=== PATIENT | female | born 1995 | race Caucasian/White ===

== ENCOUNTER 2024-04-17 11:01 | Inpatient (IN) | payer MEDICAID, OTHER ==
[2024-04-17 11:23] VITALS: BMI 31.8
[2024-04-17] MEDS ORDERED: hydrALAZINE 20 MG/ML VIAL SLOW IVP PRN (11:59)
[2024-04-17 13:13] LABS: #Basophils 0.02 10x3/uL (0.0-0.2); #Eosinophils 0.08 10x3/uL (0.0-0.5); #Monocytes 0.68 10x3/uL (0.0-1.1); %Basophils 0.2 % (0.0-2.0); %Eosinophils 0.7 % (0.0-6.0); %Monocytes 5.7 % (0.0-10.0); %Neutrophils 79.6 % (40.0-75.0); Mean Corpuscular HGB CONC 33.3 g/dL (32.0-36.0); Mean Corpuscular Hemoglobin 27.1 pg (27.0-33.0); Mean Corpuscular Volume 81.4 fL (81.6-98.3); Mean Platelet Volume 11.8 fL (7.4-10.4); Platelet Count 267 10x3/uL (150-450); RBC Distribution Width 15.2 % (11.5-14.5); Red Blood Cell (RBC) Count 4.79 10x6/uL (3.90-5.03); White Blood Cell (WBC) Count 11.9 10x3/uL (3.5-10.5)
[2024-04-17 13:44] LABS: HBsAg Index 0.22 S/CO (0-0.99); HIV (1/2) Antibody/Antigen Non-Reactive (NonReactive); Hep B Surf Ag - L&D Non-Reactive S/CO (NonReactive)
[2024-04-17 13:46] LABS: Syphilis Antibody Nonreactive (Nonreactive); Syphilis Antibody Index 0.03 S/CO (<1.00 Non-Reactive)
[2024-04-17 14:24] LABS: Bilirubin Neg (Negative); Blood, Urine Negative (Negative); Clarity Clear (Clear); Glucose, Urine (Dipstick) Normal (Negative); Ketone, Urine Negative (Negative); Leukocyte Negative (Negative); Nitrite Negative (Negative); Protein, Urine (Dipstick) 30 mg/dl (Neg-Trace); Specific Gravity, Urine 1.015 (1.005-1.030); Urobilinogen Normal mg/dL (Less than 2)
[2024-04-17 14:33] LABS: Bacteria/HPF 2+ HPF (None Seen); CAUTI Indications for Culture Pregnancy; RBC/HPF 0-3 HPF (0-3); WBC/HPF 0-3 HPF (0-3)
[2024-04-17 14:34] LABS: Urine Culture Reflex No No; Urine Culture Reflex Yes Yes
[2024-04-17] MEDS: cefTRIAXone\\ROCEPHIN 1 GM in Sodium Chloride 0.9% 100 ML IVPB SCH (15:16)
[2024-04-17] MEDS ORDERED: Promethazine HCl 25 MG/ML VIAL IM PRN (17:26)
[2024-04-17] MEDS ORDERED: Ondansetron PF 4 MG/2 ML Vial IVP PRN (17:26)
[2024-04-17] MEDS ORDERED: Morphine 4 MG/ML VIAL SLOW IVP PRN (17:28)
[2024-04-17] MEDS ORDERED: Acetaminophen 500 MG TAB PO PRN (17:28)
[2024-04-18] MEDS ORDERED: Famotidine/PF 20 mg/2ml Vial SLOW IVP PRN (10:27)
[2024-04-18] MEDS ORDERED: Bicitra 30 ML UDCUP PO PRN (10:27)
[2024-04-18] MEDS ORDERED: CEFAZOLIN 2 GM in Sodium Chloride 0.9% 100 ML IVPB SCH (10:30)
[2024-04-18 11:23] LABS: Analyzer IN Cardio CS NICU; Critical Notified By: S. CREAMER, RRT; RapidComm Collect By CBN
[2024-04-18 11:25] LABS: Analyzer IN Cardio CS NICU; Critical Notified By: S. CREAMER, RRT; RapidComm Collect By CBN; pH (Cord, venous) 7.213 (7.250-7.350)
[2024-04-18] MEDS ORDERED: Naloxone HCl 0.4 mg/ml Vial IV PRN (12:07)
[2024-04-18] MEDS ORDERED: Moisturizing Cream (Eucerin) 113 GM JAR TOP PRN (12:07)
[2024-04-18] MEDS ORDERED: diphenhydrAMINE 50 MG/ML VIAL IVP PRN (12:07)
[2024-04-18] MEDS ORDERED: Promethazine HCl 25 MG/ML VIAL IM PRN (12:07)
[2024-04-18] MEDS ORDERED: Naloxone HCl 0.4 mg/ml Vial IVP PRN ×2 (12:07)
[2024-04-18] MEDS ORDERED: Ondansetron PF 4 MG/2 ML Vial IVP PRN ×2 (12:07)
[2024-04-18] MEDS ORDERED: Meperidine HCl/PF 25 MG (1 mL) VIAL SLOW IVP PRN (12:07)
[2024-04-18] MEDS ORDERED: fentaNYL 50 mcg/mL 1 mL Vial SLOW IVP PRN (12:07)
[2024-04-18] MEDS ORDERED: Communication Order-Pharmacy FS SCH (12:15)
[2024-04-18] MEDS ORDERED: Methylergonovine 0.2 MG/ML VIAL IM PRN (14:29)
[2024-04-18] MEDS ORDERED: diphenhydrAMINE 25 MG CAP PO PRN (14:29)
[2024-04-18] MEDS ORDERED: Oxytocin 30 units/NS 500 ML 500 ML IV SCH (14:29)
[2024-04-18] MEDS ORDERED: Bisacodyl 10 MG SUPP PR PRN (14:29)
[2024-04-18] MEDS ORDERED: hydrALAZINE 20 MG/ML VIAL SLOW IVP PRN (14:29)
[2024-04-18] MEDS ORDERED: Lanolin Ointment 7 GM TUBE TOP PRN (14:29)
[2024-04-18] MEDS ORDERED: Misoprostol 200 MCG TAB PR PRN (14:29)
[2024-04-18] MEDS: Fluconazole 100 MG TAB PO SCH (14:34)
[2024-04-18] MEDS: CEFAZOLIN 2 GM VIAL ONE (14:35)
[2024-04-18] MEDS: Ketorolac Tromethamine 30 MG (1 mL) VIAL IVP SCH (14:35)
[2024-04-18] MEDS: Dexamethasone 10 MG/ML VIAL ONE (14:35)
[2024-04-18] MEDS: ePHEDrine Sulfate 50 MG/10 ML VIAL ONE (14:35)
[2024-04-18] MEDS: Glycopyrrolate 0.2 MG/ML 5 ML SYRINGE ONE (14:35)
[2024-04-18] MEDS: Oxytocin 10 UNITS/ML VIAL ONE (14:36)
[2024-04-18] MEDS: Ondansetron PF 4 MG/2 ML Vial ONE (14:36)
[2024-04-18] MEDS: Ketorolac Tromethamine 30 MG (1 mL) VIAL ONE (14:36)
[2024-04-18] MEDS: Misoprostol 200 MCG TAB ONE ×2 (14:36→14:37)
[2024-04-18] MEDS: Morphine PF 10 MG/10 ML VIAL ONE (14:36)
[2024-04-18] MEDS: PHENYLEPHRINE-NS 100 MCG/ML 10 ML SYRINGE ONE (14:36)
[2024-04-18] MEDS: Boostrix 0.5 ML (Tdap) VIAL (>/=7 yrs of age) IM ONE (14:37)
[2024-04-18] MEDS: cefTRIAXone\\ROCEPHIN 1 GM in Sodium Chloride 0.9% 100 ML IVPB SCH (19:33)
[2024-04-18] MEDS: Docusate 100 MG CAP PO SCH (21:07)
[2024-04-18] MEDS: Ibuprofen 800 MG TAB PO SCH (23:51)
[2024-04-18] MEDS: Ferrous Sulfate 325 MG TAB PO SCH (23:51)
[2024-04-19] MEDS: Ketorolac Tromethamine 30 MG (1 mL) VIAL IVP PRN (01:44)
[2024-04-19 04:54] LABS: Hematocrit 31.1 % (34.9-44.5); Hemoglobin 10.4 g/dL (12.0-15.5); Mean Corpuscular HGB CONC 33.4 g/dL (32.0-36.0); Mean Corpuscular Hemoglobin 27.4 pg (27.0-33.0); Mean Corpuscular Volume 81.8 fL (81.6-98.3); Platelet Count 247 10x3/uL (150-450); RBC Distribution Width 14.9 % (11.5-14.5); White Blood Cell (WBC) Count 13.1 10x3/uL (3.5-10.5)
[2024-04-19] MEDS: HYDROcodone/Acetaminophen 5/325 mg Tablet PO PRN (08:23)
[2024-04-19] MEDS: Prenatal Vitamin 1 TAB PO SCH (08:23)
[2024-04-19 10:38] LABS: Chlamydia by PCR, Vaginal Swab *Indeterminate (NotDetected); GC by PCR, Vaginal Swab *Indeterminate (NotDetected)
[2024-04-19 11:47] LABS: Group B Streptococcus by PCR Not Detected (NotDetected)
[2024-04-19] MEDS: Acetaminophen 325 MG TAB PO PRN (17:20)
[2024-04-19] MEDS: Simethicone Chewable 80 MG TAB PO PRN (21:27)
[2024-04-20 11:31] VITALS: BP 110/64; TEMP 98.2
[2024-04-21 00:20] LABS: Chlam.trachomatis by PCR,Urine Not Detected (NotDetected); GC N.gonorrhoeae PCR,UrineVOID Not Detected (NotDetected)
== END 2024-04-20 14:30 | disposition home or self-care (01) | DRG 787 ==
LOC: CSHLD/OP 11:01 → CSHLD 17:33 → OBSVTOIN 04-18 11:01 → CSHPP 04-18 14:11
PROVIDERS: ADMIT Student in an Organized Health Care Education/Training Program; ATTEND Student in an Organized Health Care Education/Training Program
PROC: 10D00Z1 Extraction of Products of Conception, Low, Open Approach (ICD-10-PCS; principal; 2024-04-18)
DX: O60.14X0 Preterm labor third trimester with preterm delivery third trimester, not applicable or unspecified (principal); N39.0 Urinary tract infection, site not specified; O23.43 Unspecified infection of urinary tract in pregnancy, third trimester; O34.211 Maternal care for low transverse scar from previous cesarean delivery; Z3A.36 36 weeks gestation of pregnancy; Z37.0 Single live birth; O77.0 Labor and delivery complicated by meconium in amniotic fluid; O69.81X0 Labor and delivery complicated by cord around neck, without compression, not applicable or unspecified
CPT/HCPCS: 36415; 51702; 76856; 81001; 82805; 85025; 85027; 86780; 86850; 86900; 86901; 87086; 87340; 87389; 87480; 87491; 87510; 87591; 87653; 87660; 88307; 99285; J0696; J1100; J1885; J2274; J2405; J2590